=== PATIENT | male | born 1995 | race Caucasian/White ===

== ENCOUNTER 2019-10-30 16:27 | Observation (INO) | payer OTHER, SELFPAY ==
--- NOTE | ~2019-10-30 | US_ITS ---
EXAMINATION: US right upper quadrant DATE: 10/30/2019 17:08 INDICATION: Right upper quadrant abdominal pain. Nausea and vomiting. TECHNIQUE: Multiple grayscale and Doppler ultrasound images of the abdomen were obtained. COMPARISON: None FINDINGS: The visualized portions of the head and body of the pancreas are normal. The liver is dania l without focal lesion. There is normal flow in main portal vein. The gallbladder is distended and co ntains gallstones. Gallbladder wall thickening is noted. There is a positive sonographic Hallman sign. The common duct is normal and measures 5 mm. IMPRESSION: 1. Acute cholecystitis. Reviewed, dictated and finalized at location A. [employer] HELPER IMPRESSION: 1. Acute cholecystitis.
--- NOTE | 2019-10-30 16:40 | ED.ABDPAIN ---
HPI - Abdominal Pain General Chief Complaint: Abdominal Pain Stated Complaint: RUQ pain, N/V Time Seen by Provider: 10/30/19 16:30 Source: patient Mode of arrival: ambulatory Limitations: no limitations History of Present Illness HPI narrative: A 24 y/o male presents to the ED with c/o RUQ ABD pain. Pt states that the RUQ ABD pain is intermittent and started 1 week ago. He denies any injury, activity, or fall that could have caused the ABD pain. The ABD pain is aggravated with eating, but he does not note any alleviating factors. Pt reports N/V and sweats, but denies fever, chills, CP, dysuria, and hematuria. He has a PMHx of asthma. Pt has no other complaints at this time. MD elicited complaint: abdominal pain (RUQ) Pertinent past history: none Onset (ago): week(s) (1) Pain Consistency: intermittent Location: RUQ Exacerbating factors: eating Relieving factors: nothing Associated symptoms: nausea, vomiting and other (Diaphoresis) Related Data Home Medications Medication Instructions Recorded Confirmed No Home Medications 10/30/19 10/30/19 Allergies Allergy/AdvReac Type Severity Reaction Status Date / Time amoxicillin Allergy Unknown Verified 02/23/12 16:08 cefuroxime Allergy Unknown Verified 07/04/13 14:57 cephalexin Allergy Unknown Verified 10/31/16 05:14 clavulanic acid Allergy Unknown Verified 10/31/16 05:14 Review of Systems Review of Systems: All systems reviewed & are unremarkable except as noted in HPI and below Constitutional: Constitutional: Denies chills and Denies fever(s) Cardiovascular: Cardiovascular: Denies chest pain and Reports other (Diaphoresis) Gastrointestinal: Gastrointestinal: Reports abdominal pain (RUQ), Reports nausea and Reports vomiting Genitourinary: Genitourinary: Denies hematuria and Denies dysuria [facility] Past Medical History Medical History (Updated 10/30/19 @ 18:14 by Gregory Negron MD) Asthma Surgical History Surgical History (Updated 10/30/19 @ 16:42 by Jennyfer Montalvo) No pertinent past surgical history Family History Family History Mother Family history of chronic obstructive pulmonary disease Other Diabetes mellitus Family history of coronary artery disease Social History Social History (Updated 10/30/19 @ 16:42 by Jennyfer Cerrato Smoking status: Current every day smoker Second hand tobacco smoke exposure: Yes Alcohol intake: never Gender identity (if verbalized by the patient): Male Exam Narrative: Exam Narrative: GENERAL: Uncomfortable-appearing, well-nourished, and in no acute distress. HEAD: Normocephalic, atraumatic. ENT: Mucous membranes moist. CHEST: Clear to auscultation. No respiratory distress. HEART: Regular rate and rhythm. Normal peripheral pulses. ABDOMEN: Soft, tender palpation the right upper quadrant with guarding, nondistended. EXTREMITIES: Normal range of motion. No edema. NEURO: Alert and oriented x3. PSYCH: Normal mood and affect. Course Course Emergency Course: Patient informed of results. Discussed case with general surgery. Accepted patient for admission, will place on Levaquin due to allergies listed. N.p.o. with IV fluid and likely surgery tomorrow afternoon. Vital Signs Vital signs: Vital Signs Temperature 97.2 F L 10/30/19 16:42 Pulse Rate 92 10/30/19 16:42 Respiratory Rate 18 10/30/19 16:42 Blood Pressure 132/83 10/30/19 16:42 Pulse Oximetry 100 10/30/19 16:42 Temperature 97.2 F L 10/30/19 16:42 Pulse Rate 92 10/30/19 16:42 Respiratory Rate 18 10/30/19 16:42 Blood Pressure 132/83 10/30/19 16:42 Pulse Oximetry 100 10/30/19 16:42 MDM - Abdominal Pain Lab Data Result diagrams: 10/30/19 17:12 10/30/19 17:12 Labs: Lab Results 10/30/19 10/30/19 Range/Units 17:12 17:12 WBC 10.6 H (4.5-10.0) K/mm3 RBC 5.35 (4.6-6.20) M/mm3 Hgb 16.2 (14.0-18.0) g/dL Hct 48.8 (42.0
[2019-10-30 16:42] VITALS: BP 132/83; PULSE 92; RESP 18; TEMP 36.2; O2SAT 100
[2019-10-30] MEDS: MORPHINE SULFATE 4 MG/ML INJ IV PUSH ×2 (17:12→21:41)
[2019-10-30] MEDS: ONDANSETRON INJ 4 MG/2 ML VIAL IV PUSH (17:12)
[2019-10-30 17:19] LABS: Basophils Percent Auto 0.4 % (0.2-1.2); Eosinophils Absolute Auto 0.4 K/mm3 (0-0.3); Eosinophils Percent Auto 3.6 % (0-4.4); Hematocrit 48.8 % (42.0-52.0); Hemoglobin 16.2 g/dL (14.0-18.0); Immature Granulocyte Absolute 0.03 K/mm3 (0.00-0.031); Immature Granulocyte Percent A 0.3 % (0-0.5); Lymphocytes Absolute Auto 1.96 K/mm3 (0.9-3.2); Lymphocytes Percent Auto 18.6 % (18.3-44.2); Mean Corpuscular HGB Conc 33.2 g/dl (32-36); Mean Corpuscular Hemoglobin 30.3 pg (26-34); Mean Corpuscular Volume 91.2 fl (80-100); Monocytes Absolute Auto 1.2 K/mm3 (0.1-0.6); Monocytes Percent Auto 11.1 % (2.6-8.5); Platelet Count Result 265 k/mm3 (150-375); Red Blood Count 5.35 M/mm3 (4.6-6.20); Red Cell Distribution Width 13.2 % (11.5-14.5); White Blood Count 10.6 K/mm3 (4.5-10.0)
[2019-10-30 17:32] LABS: Alanine Aminotransferase 45 U/L (4-50); Albumin Level 4.8 g/dL (3.5-5.1); Alkaline Phosphatase 57 U/L (38-126); Aspartate Amino Transferase 28 U/L (17-59); Bilirubin,Total 0.6 mg/dL (0.2-1.3); Blood Urea Nitrogen 12 mg/dL (9-20); Calcium 9.3 mg/dL (8.4-10.2); Carbon Dioxide 29 mmol/L (22-30); Chloride 100 mmol/L (98-107); Estimated CRCL calculation 103 ml/min; Estimated Glomerular Filt Rate > 60; Glucose 101 mg/dL (75-110); Lipase 22 U/L (23-300); Potassium 3.5 mmol/L (3.4-5.0); Sodium 139 mmol/L (137-145)
[2019-10-30] MEDS: levoFLOXacin 500 MG/D5W 100 ML 500 MG/100 ML BAG 100 MG IVPB (18:01)
[2019-10-30 18:35] VITALS: BP 128/78; PULSE 86; RESP 14; O2SAT 99
--- NOTE | 2019-10-30 18:40 | PC.NURSE ---
This patient, Adrian Ham, was admitted to [facility]. Patient/family oriented to hospital policies and general routines including ID bracelet, bed and alarms, visiting hours, pain management, procedures, bathroom and other care routines, personal items, smoking policy, room service/diet, and visiting hours. Valuables list has been completed. Information on how to activate the Rapid Response Team has been discussed. Patient/Family are encouraged to report perceived risks to care and to ask questions if they do not understand what they are told or what they should do.
[2019-10-30] MEDS: SODIUM CHLORIDE 0.9% IV 1,000 ML 125 ML IV CONT (19:05)
[2019-10-30 19:07] VITALS: BMI 28.5
[2019-10-30 19:08] VITALS: BP 119/67; PULSE 78; RESP 16; TEMP 37.1; O2SAT 99
[2019-10-31 00:13] VITALS: BP 125/68; PULSE 77; RESP 18; TEMP 36.6; O2SAT 100
[2019-10-31] MEDS: SODIUM CHLORIDE 0.9% IV 1,000 ML 125 ML IV CONT ×3 (03:11→20:24)
[2019-10-31] MEDS: MORPHINE SULFATE 4 MG/ML INJ IV PUSH ×5 (03:53→23:13)
[2019-10-31 05:17] VITALS: BP 98/50; PULSE 85; RESP 16; TEMP 36.4; O2SAT 100
[2019-10-31 05:37] LABS: Hematocrit 42.2 % (42.0-52.0); Hemoglobin 14.2 g/dL (14.0-18.0); Mean Corpuscular HGB Conc 33.6 g/dl (32-36); Mean Corpuscular Hemoglobin 30.3 pg (26-34); Mean Corpuscular Volume 90.2 fl (80-100); Mean Platelet Volume 10.4 fl (7.4-10.4); Platelet Count Result 222 k/mm3 (150-375); Red Blood Count 4.68 M/mm3 (4.6-6.20); White Blood Count 8.4 K/mm3 (4.5-10.0)
[2019-10-31 05:50] LABS: Alanine Aminotransferase 49 U/L (4-50); Albumin Level 3.8 g/dL (3.5-5.1); Alkaline Phosphatase 53 U/L (38-126); Aspartate Amino Transferase 36 U/L (17-59); Bilirubin,Total 0.6 mg/dL (0.2-1.3); Blood Urea Nitrogen 11 mg/dL (9-20); Calcium 8.6 mg/dL (8.4-10.2); Carbon Dioxide 26 mmol/L (22-30); Chloride 103 mmol/L (98-107); Estimated CRCL calculation 103 ml/min; Estimated Glomerular Filt Rate > 60; Glucose 95 mg/dL (75-110); Lipase 20 U/L (23-300); Potassium 3.9 mmol/L (3.4-5.0); Sodium 139 mmol/L (137-145)
--- NOTE | 2019-10-31 07:00 | PM.IMHP ---
H&P: HPI History of Present Illness Chief complaint: cholecystitis Narrative: Adrian Ham is a 24 year old male who presented last night to the ED with c/o RUQ ABD pain. Pt states that the RUQ ABD pain has been intermittent and started 1 week ago. the episode that he came to the emergency room for started approximately 3 days ago. He believes that he ate a Su sub sandwich the day the current episode started. He denies any injury, activity, or fall that could have caused the abdominal pain. The pain seeems to be aggravated with eating, but he does not note any alleviating factors. Pt reports nausea, vomiting and sweats, but denies fever, chills, and hematuria. He has a PMHx of asthma. There apparently is a strong family history of gallbladder problems. Pt has no other complaints at this time. Review of Systems Constitutional: Constitutional: Reports no additional constitutional complaints and Denies frequent falls Eyes: Eyes: Reports as per HPI ENT: Reports Normal hearing present, Denies dizziness and Reports other (Mucous membranes moist.) Cardiovascular: Cardiovascular: Denies chest pain, Denies palpitations, Denies dyspnea and Denies dyspnea on exertion Respiratory: Respiratory: Denies hemoptysis, Denies dyspnea, Denies dyspnea on exertion and Denies wheezing Gastrointestinal: Gastrointestinal: Reports no additional gastrointestinal complaints Genitourinary: Genitourinary: Denies hematuria, Denies nocturia and Denies urinary frequency Musculoskeletal: Musculoskeletal: Denies deformity and Reports other ( no clubbing,cyanosis, or edema) Integumentary/Breasts: Skin/Breast: Denies new lesions, Denies rash and Denies unusual bruising Neurologic: Reports Normal hearing present, Denies dizziness, Denies frequent falls, Denies memory loss and Denies seizure-like activity Psychiatric: Psychiatric: Denies memory loss and Reports other ( normal mood and mental status) Endocrine: Endocrine: Denies cold intolerance and Denies palpitations Hematologic/Lymphatic: Hematologic/Lymphatic: Denies easy bleeding and Denies easy bruising Allergic/Immunologic: Allergic/Immunologic: Denies wheezing and Reports other ( no lymphadenopathy) [facility] Past Medical History Medical History (Updated 10/31/19 @ 07:47 by Chucho Meza MD) Asthma Cigarette smoker Overweight (Unknown) Surgical History Surgical History No pertinent past surgical history Family History Family History (Updated 10/31/19 @ 14:03 by Chucho Meza MD) Mother Family history of chronic obstructive pulmonary disease Cholelithiasis Other Cholelithiasis Other Diabetes mellitus Family history of coronary artery disease Patient's father is Social History Social History (Updated 10/31/19 @ 07:36 by Chucho Meza MD) Smoking packs per day: 1 Smoking cigarettes per day: 20.0 Smoking status: Current some day smoker Second hand tobacco smoke exposure: Yes Alcohol intake: never Substance use: current Substance use type: marijuana Other substance usage details: usually 2X/week Last use: 10/28/2019 Occupation/Education: unemployed Gender identity (if verbalized by the patient): Male Spiritual care concerns: No Agree to blood products: Yes Meds Home Medications and Allergies Home Medications Medication Instructions Recorded Confirmed Type No Home Medications 10/30/19 10/30/19 History Allergies Allergy/AdvReac Type Severity Reaction Status Date / Time amoxicillin Allergy Unknown hives Verified 10/31/19 14:08 cefuroxime Allergy Unknown hives Verified 10/31/19 14:08 cephalexin Allergy Unknown hives Verified 10/31/19 14:08 clavulanic acid Allergy Unknown hives Verified 10/31/19 14:08 Vital Signs Vital Signs - 24 hr 10/30/19 16:42 10/30/19 18:35 10/30/19 19:08 Temperature 36.2 C L 37.1 C Pulse Rate 92 86 78 Respiratory Rate 18 14
--- NOTE | 2019-10-31 07:02 | WPDANESEPP ---
Anes - Eval Pre Procedure Procedure: Laparoscopic cholecystectomy Date/Time: 10/31/19 07:02 Surgeon: Chucho Meza M.D. Preop Diagnosis: acute cholecystitis Pre Op Diagnosis: cholecystitis Patient Data Age: 24 Gender: M Height: 1.78 m Weight: 90.1 kg Last Vital Signs Temp 36.4 C 10/31/19 05:17 Pulse 85 10/31/19 05:17 Resp 16 10/31/19 05:17 BP 98/50 L 10/31/19 05:17 Pulse Ox 100 10/31/19 05:17 Allergies Allergy/AdvReac Type Severity Reaction Status Date / Time amoxicillin Allergy Unknown Verified 02/23/12 16:08 cefuroxime Allergy Unknown Verified 07/04/13 14:57 cephalexin Allergy Unknown Verified 10/31/16 05:14 clavulanic acid Allergy Unknown Verified 10/31/16 05:14 Home Medications Medication Instructions Recorded Confirmed Type No Home Medications 10/30/19 10/30/19 History Laboratory Tests 10/30/19 10/30/19 10/31/19 17:12 17:12 05:24 WBC 10.6 K/mm3 H K/mm3 8.4 K/mm3 K/mm3 (4.5-10.0) (4.5-10.0) RBC 5.35 M/mm3 M/mm3 4.68 M/mm3 M/mm3 (4.6-6.20) (4.6-6.20) Hgb 16.2 g/dL g/dL 14.2 g/dL g/dL (14.0-18.0) (14.0-18.0) Hct 48.8 % % 42.2 % % (42.0-52.0) (42.0-52.0) MCV 91.2 fl fl 90.2 fl fl (80-100) (80-100) MCH 30.3 pg pg 30.3 pg pg (26-34) (26-34) MCHC 33.2 g/dl g/dl 33.6 g/dl g/dl (32-36) (32-36) RDW 13.2 % % 13.0 % % (11.5-14.5) (11.5-14.5) Plt Count 265 k/mm3 k/mm3 222 k/mm3 k/mm3 (150-375) (150-375) MPV 11.0 fl H fl 10.4 fl fl (7.4-10.4) (7.4-10.4) Immature Gran % (Auto) 0.3 % % (0-0.5) Neut % (Auto) 66.0 % % (45.5-73.1) Lymph % (Auto) 18.6 % % (18.3-44.2) Banner % (Auto) 11.1 % H % (2.6-8.5) Eos % (Auto) 3.6 % % (0-4.4) Baso % (Auto) 0.4 % % (0.2-1.2) Lymph # (Auto) 1.96 K/mm3 K/mm3 (0.9-3.2) Banner # (Auto) 1.2 K/mm3 H K/mm3 (0.1-0.6) Eos # (Auto) 0.4 K/mm3 H K/mm3 (0-0.3) Baso # (Auto) 0.0 K/mm3 K/mm3 (0.0-0.1) Abs Immat Gran (auto) 0.03 K/mm3 K/mm3 (0.00-0.031) Absolute Neuts (auto) 7.0 K/mm3 H K/mm3 (1.3-6.7) Absolute Nucleated RBC 0.0 K/mm3 K/mm3 (0.0-0.012) Nucleated RBC % 0.0 % % (0.0-0.2) Sodium 139 mmol/L mmol/L (137-145) Potassium 3.5 mmol/L mmol/L (3.4-5.0) Chloride 100 mmol/L mmol/L (98-107) Carbon Dioxide 29 mmol/L mmol/L (22-30) BUN 12 mg/dL mg/dL (9-20) Creatinine 1.00 mg/dL mg/dL (0.7-1.3) Estim Creat Clear Calc 103 ml/min ml/min Estimated GFR > 60 (59 - ) Glucose 101 mg/dL mg/dL (75-110) Calcium 9.3 mg/dL mg/dL (8.4-10.2) Total Bilirubin 0.6 mg/dL mg/dL (0.2-1.3) AST 28 U/L U/L (17-59) ALT 45 U/L U/L (4-50) Alkaline Phosphatase 57 U/L U/L (38-126) Total Protein 8.0 g/dL g/dL (6.3-8.2) Albumin 4.8 g/dL g/dL (3.5-5.1) Lipase 22 U/L L U/L (23-300) 10/31/19 05:24 WBC RBC Hgb Hct MCV MCH MCHC RDW Plt Count MPV Immature Gran % (Auto) Neut % (Auto) Lymph % (Auto) Banner % (Auto) Eos % (Auto) Baso % (Auto) Lymph # (Auto) Banner # (Auto) Eos # (Auto) Baso # (Auto) Abs Immat Gran (auto) Absolute Neuts (auto) Absolute Nucleated RBC Nucleated RBC % Sodium 139 mmol/L mmol/L (137-145) Potassium 3.9 mmol/L mmol/L (3.4-5.0) Chloride 103 mmol/L mmol/L (98-107) Carbon Dioxide 26 mmol/L mmol/L (22-30) BUN 11 mg/dL mg/dL (9-20) Creatinine 1.00 mg/dL mg/dL (0.7-1.3) Estim Creat Clear Calc 103 ml/min ml/min Estimated GFR > 60 (59 - ) Glucose 95 mg/dL mg/dL (75-110) Calcium 8.6 mg/dL mg/dL (8.4-10.2)
[2019-10-31 09:12] LABS: Amylase 34 U/L (30-110)
[2019-10-31 09:38] VITALS: PULSE 78; RESP 16; O2SAT 100
[2019-10-31 14:00] VITALS: BP 111/59; PULSE 77; RESP 16; TEMP 36.1; O2SAT 98
[2019-10-31] MEDS: levoFLOXacin 500 MG/D5W 100 ML 500 MG/100 ML BAG 100 MG IVPB (17:12)
[2019-10-31 20:18] VITALS: BP 107/56; PULSE 64; RESP 16; TEMP 36.1; O2SAT 100
[2019-11-01] VITALS (12 sets, daily range): BP systolic 106–151; BP diastolic 55–84; PULSE 66–96; RESP 14–16; TEMP 36.1–36.5; O2SAT 93–100
[2019-11-01] MEDS: SODIUM CHLORIDE 0.9% IV 1,000 ML 125 ML IV CONT (04:29)
[2019-11-01] MEDS: MORPHINE SULFATE 4 MG/ML INJ IV PUSH ×3 (04:30→22:00)
[2019-11-01 06:31] LABS: Hematocrit 41.2 % (42.0-52.0); Hemoglobin 13.5 g/dL (14.0-18.0); Mean Corpuscular HGB Conc 32.8 g/dl (32-36); Mean Corpuscular Hemoglobin 29.9 pg (26-34); Mean Corpuscular Volume 91.4 fl (80-100); Mean Platelet Volume 11.2 fl (7.4-10.4); Platelet Count Result 227 k/mm3 (150-375); Red Blood Count 4.51 M/mm3 (4.6-6.20); Red Cell Distribution Width 12.6 % (11.5-14.5); White Blood Count 7.5 K/mm3 (4.5-10.0)
[2019-11-01 06:42] LABS: Alanine Aminotransferase 60 U/L (4-50); Albumin Level 3.6 g/dL (3.5-5.1); Alkaline Phosphatase 56 U/L (38-126); Aspartate Amino Transferase 32 U/L (17-59); Bilirubin,Total 0.5 mg/dL (0.2-1.3); Blood Urea Nitrogen 7 mg/dL (9-20); Calcium 8.5 mg/dL (8.4-10.2); Carbon Dioxide 26 mmol/L (22-30); Chloride 103 mmol/L (98-107); Estimated CRCL calculation 127 ml/min; Estimated Glomerular Filt Rate > 60; Glucose 87 mg/dL (75-110); Potassium 3.8 mmol/L (3.4-5.0); Sodium 140 mmol/L (137-145)
[2019-11-01 06:45] LABS: Lipase 16 U/L (23-300)
--- NOTE | 2019-11-01 07:41 | WPDHPUPDATE1 ---
History and Physical Update Update Date/Time: 11/01/19 07:41 History and Physical has been reviewed, including an updated exam of the patient. There are NO changes in the patient's condition. Risks, benefits, and alternativesof a laparoscopic cholecystectomy, possible intra-operative cholangiogram, possible open cholecystectomy have been discussed and questions answered. Patient agrees to proceed with procedure.
--- NOTE | 2019-11-01 11:19 | PC.NURSE ---
To OR via bed.
--- NOTE | 2019-11-01 11:20 | PC.NURSE ---
1045 Report called to Mecca ABEL preop.
[2019-11-01] MEDS: LACTATED RINGERS 1,000 ML 30 ML IV CONT ×2 (11:35→14:17)
--- NOTE | 2019-11-01 11:42 | WPDANESEFPP ---
Anes - Eval Final PreProcedure Day of Procedure 11/01/19 11:42 Patient weight: overweight Heart: regular rate and rhythm Lungs: clear to auscultation Airway: Mallampati scale class II Neurological: alert and oriented Last oral intake: >/= 8 hours ASA classification: II Emergent: no Anesthetic plan: proceed Anesthesia type and monitoring: general ETT and standard monitoring Informed Consent: The patient's anesthetic plan and its attendant risks and benefits were discussed with the patient/family/POA. Questions were solicited and answers provided to the satisfaction of the patient/family/POA.
[2019-11-01] MEDS: BUPIVACAINE/EPINEPHRINE 0.5% 30 ML VIAL INFILTRATE (12:46)
--- NOTE | 2019-11-01 14:14 | PM.PROC ---
Procedure Note - Detailed Date of procedure: 11/01/19 Pre-op diagnosis: cholecystitis Acute cholecystitis with cholelithiasis Post-op diagnosis: same Procedure performed: Laparoscopic cholecystectomy Description of procedure: Procedure Details: Patient was seen preoperatively in the holding area and risks, benefits and alternatives confirmed. Patient was taken to the operating room and general anesthesia was induced. A time out was then preformed with the surgery team confirming patient and site of surgery. The abdomen was prepped and draped in the usual sterile fashion. Incision was made just below the umbilicus. Two stay sutures of O- Vicryl were used to elevate the mid-line fascia beneath the umbilicus and a small incision was made under direct vision. The peritoneum was entered. The 12 mm Davis cannula was introduced under direct vision. First under low flow and then under high flow the abdomen was insufflated with carbon dioxide never exceeding a pressure of 14. Three 5 mm trocars were then introduced under direct vision. The following trocars were introduced under direct vision: a 5 mm in the epigastrium and two 5 mm trocars along the right costal margin. The Ometum was loosely adherded to the inferior side of the Gall bladder. It was note to be in general bright red in color and had green spots on it The gall bladder was grasped and the cystic duct and artery were dissected free and clipped with an 5 mm endo-clip credit collector. Two clips on the patient side and one on the gall bladder side for each. The window of saftey was confirmed with only these two structures between the gallbladder and the liver bed. The cystic duct was then transected. The cystic artery was also transected at this point. The gall bladder was removed using electrocautery and then removed in an endobag via the umbilical incision. The trocars were removed visualizing hemostasis and the remaining gas evacuated. The large trocar site at the umbilicus was closed with an 0 vicryl figure of 8 suture. The 2 stay sutures mentioned above on either side of the fascia were also tied together to help approximate this midline fascia. Further local anesthetic was placed into each incision for postop pain control. The skin incisions were closed with a subcuticular of 4-0 Monocryl. Surgical glue then was applied to all the incisions. Patient tolerated the procedure well was taken to the recovery room in good condition. Anesthesia: GETA Surgeon: Chucho Meza MD Purchase Analyst: Velia ABEL, OR television production assistant. Estimated blood loss (mL): 30 Drains: No Packing: No Pathology: yes (The gallbladder) Complications: No immediate complications Condition: stable Disposition: PACU Findings: A fairly large stone stuck at the neck of the GB and an inflammed GB with green necrotic sites on its inferior wall.
[2019-11-01] MEDS: ONDANSETRON INJ 4 MG/2 ML VIAL IV PUSH (14:43)
[2019-11-01] MEDS: SENNA/DOCUSATE SODIUM TABLET 2 TAB PO (21:57)
[2019-11-02] MEDS: MORPHINE SULFATE 4 MG/ML INJ IV PUSH ×3 (00:59→09:33)
[2019-11-02 06:00] VITALS: BP 113/58; PULSE 62; RESP 14; TEMP 36.8; O2SAT 99
[2019-11-02 06:08] LABS: Hematocrit 38.9 % (42.0-52.0); Hemoglobin 13.3 g/dL (14.0-18.0); Mean Corpuscular HGB Conc 34.2 g/dl (32-36); Mean Corpuscular Hemoglobin 30.3 pg (26-34); Mean Corpuscular Volume 88.6 fl (80-100); Platelet Count Result 266 k/mm3 (150-375); Red Blood Count 4.39 M/mm3 (4.6-6.20); Red Cell Distribution Width 12.4 % (11.5-14.5); White Blood Count 10.9 K/mm3 (4.5-10.0)
[2019-11-02 06:30] LABS: Alanine Aminotransferase 65 U/L (4-50); Albumin Level 3.7 g/dL (3.5-5.1); Alkaline Phosphatase 57 U/L (38-126); Aspartate Amino Transferase 47 U/L (17-59); Bilirubin,Total 0.5 mg/dL (0.2-1.3); Blood Urea Nitrogen 6 mg/dL (9-20); Calcium 8.9 mg/dL (8.4-10.2); Carbon Dioxide 27 mmol/L (22-30); Chloride 100 mmol/L (98-107); Estimated CRCL calculation 114 ml/min; Estimated Glomerular Filt Rate > 60; Glucose 101 mg/dL (75-110); Potassium 3.9 mmol/L (3.4-5.0); Sodium 139 mmol/L (137-145)
[2019-11-02] MEDS: IBUPROFEN 600 MG TABLET PO (10:09)
[2019-11-02] MEDS: levoFLOXacin 500 MG/D5W 100 ML 500 MG/100 ML BAG 100 MG IVPB (13:56)
[2019-11-02 14:00] VITALS: BP 129/65; PULSE 82; RESP 16; TEMP 36.1; O2SAT 98
--- NOTE | 2019-11-02 14:11 | PM.DS ---
DS: Diagnosis Admitting Diagnosis Admitting Diagnosis: Calculus of gallbladder with acute cholecystitis without obstruction Discharge Diagnosis (1) Cholecystitis, acute with cholelithiasis: Onset Date: ~10/28/19 Code(s): K80.00 - Calculus of gallbladder with acute cholecystitis without obstruction Status: Acute (2) Cigarette smoker: Code(s): F17.210 - Nicotine dependence, cigarettes, uncomplicated Status: Acute (3) Overweight: Onset Date: Unknown Code(s): E66.3 - Overweight Status: Acute DS: Summary Hospital Course Reason for hospitalization: Adrian Ham is a 24 year old male who presented to the ED with c/o RUQ ABD pain for about 1 week with the more acute episode occurring 3 days prior to ER visit after eating a Su sub sandwhich. He had associated nausea, vomiting, and sweats but no fever. RUQ ultrasound showed acute cholecystitis. Hospital Course: The patient was admitted to our service 2 days ago and evaluated by Dr. Meza. Discussion of treatment was had and the decision was made to proceed with a laparoscopic cholecystectomy, which was done yesterday. No immediate complications and he was recovered and transferred to the medical floor. He was slowly advanced to a low fat diet and is currently tolerating this well. He was treated with IV Levaquin since being admitted from the ER. He received one more dose today prior to discharge. His pain is currently tolerable with the scheduled Ibuprofen 600 mg Q6H and the [employer] Mdl 5-325 mg Q6H as needed. The patient is tolerating activity. Denies nausea, vomiting, or bloating. Post-op labs unremarkable. States his pain is all localized at the incision sites. No other complaints at this time. Stable for discharge. This was discussed as well with Dr. Meza who is okay with discharge home with no need for oral antibiotics. Status at Discharge Functional status at discharge: independent ambulation Overall status at discharge: patient is progressing back to baseline Time Spent with Patient Time attestation: Total time spent providing and/or coordinating discharge services: Time spent: Less than 30 minutes Exam Const: General: comfortable, no acute distress, alert and awake Orientation/consciousness: patient oriented x3 GI: Inspection: non-distended and incision (Abdominal incisions healing as expected. Clean/dry/intact.) GI Palp: Yes Soft to palpation, Yes Tenderness to palpation present (GI) (expected incisional tenderness), No Guarding due to palpation present (GI) and No Rebound tenderness present Auscultation: normal bowel sounds Neuro: General: moves all extremities Cranial nerves: Yes CN's II-XII intact bilaterally Speech: normal speech Extrem: General: no calf tenderness and no edema Psych: Mental Status: mental status grossly normal Attitude: cooperative Thought process: Normal thought process present Thought content: Yes Normal thought content present DS: Data Data Completed and Pending Pending studies at discharge: Pending at discharge 11/01/19 12:55 Surgical [PTH] Routine Labs on day of discharge: Labs from last 24 hours 11/02/19 11/02/19 05:17 05:17 WBC 10.9 H RBC 4.39 L Hgb 13.3 L Hct 38.9 L MCV 88.6 MCH 30.3 MCHC 34.2 RDW 12.4 Plt Count 266 MPV 11.0 H Sodium 139 Potassium 3.9 Chloride 100 Carbon Dioxide 27 BUN 6 L Creatinine 0.90 Estim Creat Clear Calc 114 Estimated GFR > 60 Glucose 101 Calcium 8.9 Total Bilirubin 0.5 Direct Bilirubin 0.0 AST 47 ALT 65 H Alkaline Phosphatase 57 Total Protein 7.0 Albumin 3.7 Discharge Plan Discharge Attending physician on discharge: Chucho Meza Consulting providers: Allen Lizarraga Discharging Clinician: Ashlyn Vyas Anticipated Discharge Date/Time: 11/02/19 14:45 Patient Disposition: Home, Self-Care Activity: may shower and other - see discharge instructions
--- NOTE | 2019-11-02 15:32 | WPDANESPN ---
Anes - Prog Note Post-Op Date/Time: 11/02/19 15:32 Cardiovascular status: normal Respiratory status: normal Airway patency: baseline Mental status: baseline Post-Op hydration status: normal Vital Signs: Last Vital Signs Temp 36.1 C L 11/02/19 14:00 Pulse 82 11/02/19 14:00 Resp 16 11/02/19 14:00 BP 129/65 11/02/19 14:00 Pulse Ox 98 11/02/19 14:00 I/O: Intake & Output 11/01/19 11/02/19 11/02/19 23:59 07:59 15:59 Intake Total 240 581 580 Balance 240 581 580 Laboratory Tests 11/02/19 05:17 11/02/19 05:17 11/02/19 11/02/19 05:17 05:17 WBC 10.9 H RBC 4.39 L Hgb 13.3 L Hct 38.9 L MCV 88.6 MCH 30.3 MCHC 34.2 RDW 12.4 Plt Count 266 MPV 11.0 H Sodium 139 Potassium 3.9 Chloride 100 Carbon Dioxide 27 BUN 6 L Creatinine 0.90 Estim Creat Clear Calc 114 Estimated GFR > 60 Glucose 101 Calcium 8.9 Total Bilirubin 0.5 Direct Bilirubin 0.0 AST 47 ALT 65 H Alkaline Phosphatase 57 Total Protein 7.0 Albumin 3.7 Post-procedural complaints: none Patient Feedback: Patient satisfied with anesthetic care.
== END 2019-11-02 16:23 | disposition home or self-care (01) | DRG 263 ==
LOC: ANHED 18:14 → ANH3MED 18:49
PROVIDERS: Admitting Provider Surgery; Emergency Provider Emergency Medicine; Visit Provider Surgery
PROC: 0FT44ZZ Resection of Gallbladder, Percutaneous Endoscopic Approach (ICD-10-PCS; CPT 47562; principal; 2019-11-01 12:00)
DX: K80.00 Calculus of gallbladder with acute cholecystitis without obstruction (principal); E66.3 Overweight; Z68.28 Body mass index [BMI] 28.0-28.9, adult; J45.909 Unspecified asthma, uncomplicated; F17.210 Nicotine dependence, cigarettes, uncomplicated; Z88.0 Allergy status to penicillin; Z88.1 Allergy status to other antibiotic agents
CPT/HCPCS: 47562; 36415; 76705; 80048; 80053; 80076; 82150; 83690; 85025; 85027; 86850; 86900; 86901; 88304; 96361; 96365; 96374; 96375; 96376; 99285; A9270; G0378; G0379; J0131; J0330; J1200; J1956; J2250; J2270; J2405; J2704; J2710; J3010; J7030; J7120

== ENCOUNTER 2020-07-15 18:37 | Emergency (ER) | payer OTHER, SELFPAY ==
--- NOTE | ~2020-07-15 | XR_ITS ---
EXAMINATION: XR chest 1V portable 07/15/2020 19:41 INDICATION: Cough, headache and sore throat PROCEDURE: AP portable chest COMPARISON: 10/31/2016 FINDINGS: The lungs are clear. The cardiomediastinal silhouette is within normal limits. There are no pleural effusions. There is no pneumothorax suspected. IMPRESSION: 1: NO ACUTE CARDIOPULMONARY DISEASE. Reviewed, dictated and finalized at location A.
[2020-07-15 18:40] VITALS: BP 129/63; PULSE 105; RESP 18; TEMP 36.3; O2SAT 99
[2020-07-15 19:31] VITALS: BP 131/82; PULSE 102; RESP 18; TEMP 36.7; O2SAT 96
--- NOTE | 2020-07-15 20:00 | ED.URI ---
HPI - URI/Sore Throat General Chief Complaint: Upper Respiratory Infection Stated Complaint: cough Time Seen by Provider: 07/15/20 19:50 Source: patient History of Present Illness HPI Narrative: 25-year-old male presents to emergency department for multiple complaints that started yesterday morning. Patient states he is feeling nasal congestion, fever, wheezing, and body aches. He states he has never felt this bad in the past before. He has been taking NSAIDs and Tylenol to help with his pain. He also took a breathing treatment earlier today. He does report chest pain with coughing. No abdominal pain. No nausea or vomiting. Related Data Home Medications Medication Instructions Recorded Confirmed No Home Medications 07/15/20 07/15/20 Allergies Allergy/AdvReac Type Severity Reaction Status Date / Time amoxicillin Allergy Unknown hives Verified 07/15/20 19:26 cefuroxime Allergy Unknown hives Verified 07/15/20 19:26 cephalexin Allergy Unknown hives Verified 07/15/20 19:26 clavulanic acid Allergy Unknown hives Verified 07/15/20 19:26 Review of Systems Review of Systems: Narrative: CONSTITUTIONAL: Reports body aches and fever EYES: Denies visual changes, redness, or discharge. ENT: Reports runny nose and congestion. CARDIOVASCULAR: Reports chest pain with coughing. RESPIRATORY: Reports shortness of breath GASTROINTESTINAL: Denies abdominal pain, nausea, vomiting, or diarrhea. GENITOURINARY: Denies dysuria or hematuria. SKIN: Denies rash or itching. MUSCULOSKELETAL: Denies back pain, joint pain, or myalgia. NEUROLOGIC: Denies headache, numbness, dizziness, or weakness. PSYCHIATRIC: Denies anxiety or depression. All systems reviewed & are unremarkable except as noted in HPI and below (ROS) [facility] Past Medical History Medical History Asthma Cigarette smoker Overweight (Unknown) Surgical History Surgical History No pertinent past surgical history Family History Family History Mother Family history of chronic obstructive pulmonary disease Cholelithiasis Other Cholelithiasis Other Diabetes mellitus Family history of coronary artery disease Patient's father is Social History Social History Smoking packs per day: 1 Smoking cigarettes per day: 20.0 Smoking status: Current some day smoker Second hand tobacco smoke exposure: Yes Alcohol intake: never Substance use: current Substance use type: marijuana Other substance usage details: usually 2X/week Last use: 10/28/2019 Gender identity (if verbalized by the patient): Male Spiritual care concerns: No Agree to blood products: Yes Exam Narrative: Exam Narrative: GENERAL: Well-appearing, well-nourished, and in no acute distress. HEAD: Normocephalic, atraumatic. EYES: PERRLA and EOMI. ENT: Nares clear, no rhinorrhea or epistaxis. Mucous membranes moist. NECK: Supple. CHEST: Clear to auscultation. No respiratory distress. HEART: Tachycardic. No murmur heard. Normal peripheral pulses. ABDOMEN: Soft, nontender, nondistended, normal active bowel sounds. EXTREMITIES: Normal range of motion. No edema. SKIN: Warm, dry, no rash. NEURO: No focal deficits. Alert and oriented x3. PSYCH: Normal mood and affect. Course Reevaluation(s) Reevaluation #1: 22:25 -reevaluated patient, no new complaints. Patient likely has a viral URI. Counseled the patient to take Motrin or ibuprofen as needed for pain. Follow-up with his family doctor within 1 week. Return to emergency department if symptoms persist, worsen, or other concerns. Vital Signs Vital signs: Vital Signs Temperature 36.3 C L 07/15/20 18:40 Pulse Rate 105 H 07/15/20 18:40 Respiratory Rate 18 07/15/20 18:40 Blood Pressure 129/63 07/15/20 18:40 Pulse O
[2020-07-15 20:39] LABS: Lactate Dehydrogenase 431 U/L (313-618)
[2020-07-15 20:43] LABS: CRP 1.2 mg/dL (<1.0)
[2020-07-15] MEDS: KETOROLAC 30 MG/ML VIAL (*BKC) IV PUSH (20:48)
[2020-07-15] MEDS: SODIUM CHLORIDE 0.9% IV 1,000 ML 999 ML IV CONT (20:48)
[2020-07-15 21:18] VITALS: TEMP 36.8
[2020-07-15 21:29] VITALS: BP 131/81; PULSE 88; RESP 22; TEMP 36.8; O2SAT 96
[2020-07-15 22:34] VITALS: BP 130/80; PULSE 91; RESP 20; TEMP 36.9; O2SAT 95
[2020-07-16 13:52] LABS: SARS-CoV-2 RNA PCR Negative
[2020-07-18 19:54] LABS: Procalcitonin 0.12 ng/mL (<0.10)
== END 2020-07-15 22:36 | disposition home or self-care (01) ==
PROVIDERS: Emergency Provider Emergency Medicine
DX: J06.9 Acute upper respiratory infection, unspecified (principal); F17.210 Nicotine dependence, cigarettes, uncomplicated; J45.909 Unspecified asthma, uncomplicated
CPT/HCPCS: 36415; 71045; 82728; 83615; 84145; 86140; 87081; 87635; 87804; 87880; 96361; 96374; 99284; C9803; J1885; J7030; U0003

== ENCOUNTER 2021-06-03 16:36 | Emergency (ER) | payer OTHER, SELFPAY ==
--- NOTE | 2021-06-03 16:40 | PC.NURSE ---
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 pt states he was not feeling well, has n/v/d/. After the patient was registered, he stated that's all I need ( when this RN was going to put armband on the pt.) Patient refused triage or treatment. He states the armband is all I need to send in . I missed class . He states I just want to recover at home . Pt again offered triage & treatment and patient refused. Pt ambulatory out of ED with normal steady gait, no respiratory difficulty noted. Informed patient I was unsure if there would be a charge since he checked in to be seen, and did not state initially he did not want treatment.
== END 2021-06-03 20:12 | disposition left against medical advice (07) ==
DX: Z53.21 Procedure and treatment not carried out due to patient leaving prior to being seen by health care provider (principal)
CPT/HCPCS: 99199